=== PATIENT | female | born 1950 | race Hispanic/Latino ===

== ENCOUNTER 2024-03-24 10:39 | Emergency (ER) | payer MEDICARE ==
[~2024-03-24] VITALS: Ht 162.6 cm; Wt 96.2 kg
[2024-03-24 10:47] VITALS: TEMP 98.1
[2024-03-24] MEDS ORDERED: SODIUM CHLORIDE FLUSH 10 ML SYR IV PRN (11:00)
[2024-03-24 11:14] VITALS: PULSE 83; RESP 18
[2024-03-24 11:17] LABS: BASOPHILS # (AUTO) 0.1 (0.0-0.1); BASOPHILS % 1.2 % (0.0-1.0); EOSINOPHILS # (AUTO) 0.1 (0.0-0.4); EOSINOPHILS % 1.6 % (0.0-6.0); HEMATOCRIT 41.2 % (34.2-44.1); HEMOGLOBIN 13.2 g/dL (12.0-16.0); LYMPHOCYTES # (AUTO) 1.2 (1.0-3.2); LYMPHOCYTES % 20.8 % (18.0-39.1); MEAN CORPUSCULAR HEMOGLOBIN 27.6 pg (28-32); MEAN CORPUSCULAR VOLUME 86.2 fL (81-99); MONOCYTES # (AUTO) 0.3 (0.2-0.8); MONOCYTES % 5.5 % (4.4-11.3); NEUTROPHILS % 70.7 % (38.7-80.0); PLATELET COUNT 243 x10e3/uL (140-360); RED BLOOD COUNT 4.78 x10e6/uL (3.6-5.1); RED CELL DISTRIBUTION WIDTH 13.5 % (11.7-14.4); WHITE BLOOD COUNT 5.66 x10e3/uL (4.8-10.8)
[2024-03-24] MEDS: ASPIRIN 81 MG CHEW TAB PO ONE (11:18)
[2024-03-24] MEDS: LABETALOL HCL 5 MG/ML 20ML VIAL IV STA (11:21)
[2024-03-24 11:48] LABS: ALBUMIN 3.6 g/dL (3.5-5.0); ANION GAP 16.5 mmol/L (8-16); BILIRUBIN,TOTAL 0.7 mg/dL (0.2-1.2); CALCIUM 9.1 mg/dL (8.4-10.2); CREATININE, SERUM 0.86 mg/dL (0.57-1.11); POTASSIUM 4.5 mmol/L (3.5-5.1); TOTAL PROTEIN 7.1 g/dL (6.5-8.1)
[2024-03-24 11:54] LABS: TROPONIN I 0.003 ng/mL (0-0.300)
[2024-03-24] MEDS ORDERED: CLONIDINE HCL0.1 MG PO (15:10)
[2024-03-24 15:43] VITALS: BP 116/79; PULSE 81; RESP 18; TEMP 98.2; O2SAT 98
== END 2024-03-24 15:45 | disposition home or self-care (01) ==
LOC: ER 10:43
DX: R06.02 Shortness of breath (principal); I16.0 Hypertensive urgency; R11.0 Nausea; R10.13 Epigastric pain; E78.5 Hyperlipidemia, unspecified; I10 Essential (primary) hypertension; E11.65 Type 2 diabetes mellitus with hyperglycemia; F41.9 Anxiety disorder, unspecified; R94.31 Abnormal electrocardiogram [ECG] [EKG]
CPT/HCPCS: 36415; 71045; 80053; 83880; 84484; 85025; 93005; 94760; 99284; J3490

== ENCOUNTER 2025-03-22 14:20 | Emergency (ER) | payer MEDICARE ==
[~2025-03-22] VITALS: Ht 160 cm; Wt 98.9 kg
[~2025-03-22 14:20] MED LIST: CLONIDINE HCL0.1 MG PO
[2025-03-22 14:48] VITALS: TEMP 98.4
[2025-03-22 15:46] LABS: BASOPHILS % 0.9 % (0.0-1.0); EOSINOPHILS % 1.8 % (0.0-6.0); LYMPHOCYTES % 17.1 % (18.0-39.1); MONOCYTES % 7.7 % (4.4-11.3); NEUTROPHILS % 72.1 % (38.7-80.0); RED CELL DISTRIBUTION WIDTH 13.4 % (11.7-14.4)
[2025-03-22] MEDS: ONDANSETRON HCL INJ 2MG/ML 2ML 2 MG/ML VIAL IV STA (15:48)
[2025-03-22] MEDS: CLONIDINE HCL 0.1 MG TAB PO ONE (15:49)
[2025-03-22] MEDS: SODIUM CHLORIDE 0.9% 1000ML 1,000 ML IV STA (15:49)
[2025-03-22 15:51] LABS: INR 1.01
[2025-03-22 16:01] LABS: EST GLOMERULAR FILTRATION RATE 93.0 ML/MIN (>=60)
[2025-03-22] MEDS ORDERED: IOPAMIDOL 370 MG/ML 100 ML INFUS..BTL INJ ONE (16:06)
[2025-03-22] MEDS: DIPHENHYDRAMINE HCL INJ 50 MG/ML VIAL IV ONE (16:40)
[2025-03-22] MEDS: ASPIRIN 81 MG CHEW TAB PO ONE (17:43)
[2025-03-22] MEDS ORDERED: MECLIZINE HCL12.5 MG PO (18:56)
[2025-03-22 19:00] VITALS: PULSE 75; RESP 14
[2025-03-22 19:18] VITALS: BP 140/69; PULSE 75; RESP 14; O2SAT 100
== END 2025-03-22 19:12 | disposition home or self-care (01) ==
LOC: ER 15:21
DX: R42 Dizziness and giddiness (principal); I10 Essential (primary) hypertension; E11.65 Type 2 diabetes mellitus with hyperglycemia; E78.5 Hyperlipidemia, unspecified; F41.9 Anxiety disorder, unspecified; R94.31 Abnormal electrocardiogram [ECG] [EKG]
CPT/HCPCS: 36415; 70450; 70496; 70498; 71045; 80053; 82550; 83735; 84484; 85025; 85610; 85730; 93005; 99284; J1200; J2405; J7030; Q9967